=== PATIENT | female | born 1955 | race Caucasian/White ===

== ENCOUNTER → 2016-08-04 | Outpatient (CLI) | payer OTHER ==
[~2016-08-04] MED LIST: ESTRACE; GLUCOSAMINE/CHONDROI; LORTAB 7.5-5001 TAB PO; MULTIVITAMIN1 UDCAP PO; OSTEO-BIFLEX; PHENERGAN25 MG PO
--- NOTE | ~2016-08-04 | BD1 ---
[facility] A Service of [facility] & [facility] RADIOLOGY TEXT RESULTS PATIENT: ORALIA CARDENAS LOCATION: [facility] : 55 UNIT #: [id number] AGE: [address]: WINSTON AHN MD SEX: F ORDER DR: [id number] [facility] [address] [place], [place] [address] [id number] O MR#: [id number] Acc #: [id number] NAME: ORALIA CARDENAS : 1955 SEX: F STUDY DATE/TIME: 08/04/2016 9:20 UNIT: [facility] ROOM: STUDY DESCRIPTION: BD Dexa Bone Dens 1+ Site Attending Physician: Winston Ahn M.D. Referring Physician: Winston Ahn M.D. Ordering Physician: Winston Ahn M.D. Primary Care Physician: Winston Ahn M.D. MEDICAL IMAGING REPORT This report is preliminary unless electronic signature is present EXAM Bone density spine/hip. DATE OF EXAM 08/04/2016 HISTORY Osteoporosis. TECHNIQUE Bone density performed upper 4 lumbar vertebral segments and proximal left femur in this 177-pound 61-year-old postmenopausal female. COMPARISON 07/24/2014 FINDINGS L1-L4: Overall bone mineral density is 0.854 g/cm2 for T-score 1.8 standard deviations below mean for a reference population in normal young individuals and Z-score 0.3 standard deviations below the mean for age-matched population. Compared to 07/24/2014, there has been a 3.9% increase in bone mineral density in this region. This is statistically significant. PROXIMAL LEFT FEMUR: Total bone mineral density 0.884 g/cm2. T-score 0.5 standard deviations below mean for a reference population in normal young individuals, and Z-score 0.5 standard deviations above the mean for age-match population. Left femoral neck bone mineral density is 0.720 g/cm2 for a T-score 1.2 standard deviations below mean for a reference population in normal young individuals and a Z-score 0.2 standard deviations above the mean for age-matched population. Using total bone mineral density in this region as a trending value, there has been a 1.8% decrease in proximal left femoral bone mineral density compared to July. [facility] A Service of [facility] RADIOLOGY TEXT RESULTS PATIENT: ORALIA CARDENAS LOCATION: [facility] : 55 UNIT #: [id number] AGE: [address]: WINSTON AHN MD SEX: F ORDER DR: 2014. IMPRESSION 1. Osteopenia upper 4 lumbar vertebral segments. Patient felt to be at increased risk for fracture. Treatment options may be considered. Continued surveillance is recommended. Note made of osteopenia in the left femoral neck as well. 2. Statistically significant increase in bone mineral density in the upper 4 lumbar vertebral segments compared to July 2014. Please see complete trending data in body of report above. Dictated by... Richard Weems M.D. THIS IS AN ELECTRONICALLY VERIFIED REPORT Richard Weems M.D. at 08/04/2016 8:00 PM KARTIK/gino TD: 08/04/2016 17:28 JOB #: [id number] MEDICAL IMAGING REPORT Page 1 of 1 COPY
--- NOTE | ~2016-08-04 | US24 ---
[facility] A Service of [facility] RADIOLOGY TEXT RESULTS PATIENT: ORALIA CARDENAS LOCATION: [facility] : 55 UNIT #: [id number] AGE: [address]: WINSTON AHN MD SEX: F ORDER DR: [id number] [address] [address] [id number] O MR#: [id number] Acc #: [id number] NAME: ORALIA CARDENAS : 1955 SEX: F STUDY DATE/TIME: 08/04/2016 9:19 UNIT: [facility] ROOM: STUDY DESCRIPTION: US Breast Unilateral Attending Physician: Winston Ahn M.D. Referring Physician: Winston Ahn M.D. Ordering Physician: Winston Ahn M.D. Primary Care Physician: Winston Ahn M.D. MEDICAL IMAGING REPORT This report is preliminary unless electronic signature is present EXAM Right breast ultrasound. HISTORY Palpable right breast mass. PROCEDURE Grayscale and Doppler imaging of the right breast, 2 o'clock position area of palpable concern. COMPARISON Concurrently performed diagnostic mammogram. FINDINGS/IMPRESSION Refer to the separately dictated diagnostic mammogram for work-up, findings, and recommendations. BIRADS: 2 Benign finding. Dictated by... Papito Zhao M.D. THIS IS AN ELECTRONICALLY VERIFIED REPORT Papito Zhao M.D. at 08/04/2016 5:05 PM ASHOK/yuly TD: 08/04/2016 11:52 JOB #: [id number] MEDICAL IMAGING REPORT [facility] A Service [facility] RADIOLOGY TEXT RESULTS PATIENT: ORALIA CARDENAS LOCATION: [facility] : 55 UNIT #: [id number] AGE: [address]: WINSTON AHN MD SEX: F ORDER DR: Page 1 of 1 COPY
--- NOTE | ~2016-08-04 | MY6 ---
[facility] A Service of [facility] RADIOLOGY TEXT RESULTS PATIENT: ORALIA CARDENAS LOCATION: [facility] : 55 UNIT #: [id number] AGE: [address]: WINSTON AHN MD SEX: F ORDER DR: [id number] [address] [address] [id number] O MR#: [id number] Acc #: [id number] NAME: ORALIA CARDENAS : 1955 SEX: F STUDY DATE/TIME: 08/04/2016 8:54 UNIT: [facility] ROOM: STUDY DESCRIPTION: MY Mammogram Dx [place] Attending Physician: Winston Ahn M.D. Referring Physician: Winston Ahn M.D. Ordering Physician: Winston Ahn M.D. Primary Care Physician: Winston Ahn M.D. MEDICAL IMAGING REPORT This report is preliminary unless electronic signature is present EXAM Bilateral digital diagnostic mammogram INDICATION Two palpable abnormalities in the right breast. PROCEDURE Bilateral CC, MLO and true lateral views. Right XCCM view and spot compression views of the right breast in the CC and MLO projections. Images obtained on a digital mammography unit. FDA-approved CAD device utilized. COMPARISON 12/09/2015 FINDINGS Heterogeneous fibroglandular density that could obscure a small mass. Stable parenchymal pattern. There is no dominant mass. No suspicious calcification. No mammographic abnormality in the area of patient's palpable concern. Right breast ultrasound in the area of patient's palpable concern shows a slightly hyperechoic lesion at the 2 o'clock position that measures up to 2.1 cm. There is a 3.0 mm sebaceous cyst in the 2 o'clock position and a 4.0 mm slightly hyperechoic lesion in the 2 o'clock position. IMPRESSION 1. Benign bilateral diagnostic mammogram and right breast ultrasound. 2. Two lipomas in the area of palpable concern and a tiny sebaceous cyst. 3. Recommend patient continue with yearly screening. Patients over the age of 40 are entered into a reminder system with target [facility] A Service of [facility] & [facility] RADIOLOGY TEXT RESULTS PATIENT: ORALIA CARDENAS LOCATION: [facility] : 55 UNIT #: [id number] AGE: [address]: WINSTON AHN MD SEX: F ORDER DR: due date for the next mammogram. A result letter will also be sent to the patient. BIRADS: 2 Benign Finding Dictated by... Papito Zhao M.D. THIS IS AN ELECTRONICALLY VERIFIED REPORT Papito Zhao M.D. at 08/04/2016 5:05 PM Danita TD: 08/04/2016 11:30 JOB #: [id number] MEDICAL IMAGING REPORT Page 1 of 1 COPY
== END | disposition home or self-care (01) ==
LOC: CMAM 08:22
DX: M81.0 Age-related osteoporosis without current pathological fracture (principal); N63 Unspecified lump in breast; D17.79 Benign lipomatous neoplasm of other sites; N60.01 Solitary cyst of right breast; M85.88 Other specified disorders of bone density and structure, other site
CPT/HCPCS: 76641; 77080; G0204